=== PATIENT | female | born 1975 | race Caucasian/White ===

== ENCOUNTER 2018-05-15 13:47 | Emergency (ER) | payer MEDICAID ==
[~2018-05-15] VITALS: Ht 177.8 cm; Wt 77.0 kg
[2018-05-15 15:43] LABS: BASOPHILS # (AUTO) 0.23 x10^3/uL (0-0.1); BASOPHILS % (AUTO) 2 % (0-1); EOSINOPHILS # (AUTO) 0.22 x10^3/uL (0-0.4); EOSINOPHILS % (AUTO) 2 % (1-7); LYMPHOCYTES # (AUTO) 4.36 x10^3/uL (1-3.4); LYMPHOCYTES % (AUTO) 29 % (22-44); MD SCAN; MEAN CORPUSCULAR HEMOGLOBIN 30.1 pg (27.0-34.8); MEAN CORPUSCULAR HGB CONC 32.6 g/dL (32.4-35.8); MEAN CORPUSCULAR VOLUME 92.5 fL (80-100); MEAN PLATELET VOLUME 8.4 fL (7.4-10.4); MONOCYTES # (AUTO) 0.96 x10^3/uL (0.2-0.8); MONOCYTES % (AUTO) 7 % (2-9); NEUTROPHILS # (AUTO) 9.11 x10^3/uL (1.8-6.8); NEUTROPHILS % (AUTO) 61 % (42-75); PLATELET COUNT 400 x10^3/uL (130-400); RED BLOOD COUNT 4.21 x10^6/uL (3.82-5.3); RED CELL DISTRIBUTION WIDTH 17.9 % (9.6-15.2)
[2018-05-15 15:46] LABS: ALANINE AMINOTRANSFERASE 17 U/L (12-78); ALBUMIN 3.6 g/dL (3.4-5.0); ANION GAP 11 mmol/L (5-15); CALCIUM 8.5 mg/dL (8.5-10.1); CHLORIDE 112 mmol/L (98-107); CREATININE 1.34 mg/dL (0.55-1.02)
[2018-05-15 15:49] LABS: ALKALINE PHOSPHATASE 79 U/L (45-117); BILIRUBIN,TOTAL 0.2 mg/dL (0.2-1.0)
[2018-05-15] MEDS ORDERED: ONDANSETRON 2MG/ML, 2ML IVPush ONE (16:30)
[2018-05-15] MEDS ORDERED: SODIUM CHLORIDE FLUSH 10ML SYR IVF ONE (16:30)
[2018-05-15 16:58] LABS: MICROSCOPIC NOT IND
[2018-05-15 17:02] LABS: CULTURE INDICATED? NO
[2018-05-15] MEDS ORDERED: HYDROmorphone 2 MG/ML, 1ML ONE ×2 (17:08→18:49)
[2018-05-15] MEDS ORDERED: ONDANSETRON 2MG/ML, 2ML ONE (17:08)
[2018-05-15] MEDS: HYDROmorphone 2 MG/ML, 1ML IVPush PRN ×2 (17:15→18:50)
[2018-05-15] MEDS ORDERED: OMNIPAQUE 350 MG/ML, 100ML BOTTLE ONE (17:38)
[2018-05-15 17:44] LABS: CLOSTRIDIUM DIFFICILE ANTIGEN NEGATIVE; CLOSTRIDIUM DIFFICILE TOXIN NEGATIVE (Negative)
[2018-05-15 19:11] VITALS: BP 138/70
[2018-05-15] MEDS ORDERED: SUMA25TA3 PO (21:17)
[2018-05-15] MEDS ORDERED: METO25TA35 PO (21:17)
[2018-05-15] MEDS ORDERED: CHOL400C11 PO (21:17)
[2018-05-15] MEDS ORDERED: GABA-827 PO (21:18)
[2018-05-15] MEDS ORDERED: AMLO10TA6 PO (21:18)
[2018-05-15] MEDS ORDERED: LORA-446 PO (21:18)
== END 2018-05-15 19:14 | disposition home or self-care (01) ==
LOC: ED 18:33
DX: K52.9 Noninfective gastroenteritis and colitis, unspecified (principal); F17.200 Nicotine dependence, unspecified, uncomplicated
CPT/HCPCS: 36415; 74022; 74177; 80053; 81003; 83690; 85025; 87324; 89055; 96374; 96375; 96376; 99284; J1170; J2405; Q9967

== ENCOUNTER 2018-05-15 20:50 | Emergency (ER) | payer MEDICAID ==
[~2018-05-15] VITALS: Ht 170.2 cm; Wt 70.0 kg
[2018-05-15] MEDS ORDERED: SUMA25TA3 PO (21:17)
[2018-05-15] MEDS ORDERED: METO25TA35 PO (21:17)
[2018-05-15] MEDS ORDERED: CHOL400C11 PO (21:17)
[2018-05-15] MEDS ORDERED: AMLO10TA6 PO (21:18)
[2018-05-15] MEDS ORDERED: LORA-446 PO (21:18)
[2018-05-15] MEDS ORDERED: GABA-827 PO (21:18)
[2018-05-15] MEDS ORDERED: PROMETHAZINE 25 MG/ML, 1ML IM ONE (21:30)
[2018-05-15] MEDS ORDERED: HYDROmorphone 2 MG/ML, 1ML ONE (21:30)
[2018-05-15] MEDS ORDERED: HYDROmorphone 1 MG/ML, 1ML IM ONE (21:30)
[2018-05-15] MEDS ORDERED: PROMETHAZINE 25 MG/ML, 1ML ONE (21:30)
[2018-05-15 22:02] LABS: BASOPHILS % (AUTO) 1 % (0-1); EOSINOPHILS # (AUTO) 0.24 x10^3/uL (0-0.4); EOSINOPHILS % (AUTO) 3 % (1-7); LYMPHOCYTES # (AUTO) 2.56 x10^3/uL (1-3.4); LYMPHOCYTES % (AUTO) 30 % (22-44); MD NO; MEAN CORPUSCULAR HEMOGLOBIN 30.9 pg (27.0-34.8); MEAN CORPUSCULAR HGB CONC 33.4 g/dL (32.4-35.8); MEAN CORPUSCULAR VOLUME 92.7 fL (80-100); MEAN PLATELET VOLUME 7.4 fL (7.4-10.4); MONOCYTES % (AUTO) 10 % (2-9); NEUTROPHILS # (AUTO) 4.78 x10^3/uL (1.8-6.8); NEUTROPHILS % (AUTO) 56 % (42-75); PLATELET COUNT 483 x10^3/uL (130-400); RED BLOOD COUNT 3.58 x10^6/uL (3.82-5.3)
[2018-05-15 22:10] LABS: ALANINE AMINOTRANSFERASE 15 U/L (12-78); ANION GAP 9 mmol/L (5-15); CHLORIDE 115 mmol/L (98-107); CREATININE 1.11 mg/dL (0.55-1.02)
[2018-05-15 22:12] LABS: ALKALINE PHOSPHATASE 67 U/L (45-117); BILIRUBIN,TOTAL 0.1 mg/dL (0.2-1.0); TOTAL PROTEIN 6.9 g/dL (6.4-8.2)
[2018-05-15] MEDS ORDERED: DICYCLOMINE 10 MG CAPSULE PO ONE (22:30)
[2018-05-15] MEDS ORDERED: DICYCLOMINE 20 MG TABLET ONE (22:31)
[2018-05-15 22:43] VITALS: BP 124/84
== END 2018-05-15 22:45 | disposition home or self-care (01) ==
LOC: ED 22:02
DX: A09 Infectious gastroenteritis and colitis, unspecified (principal)
CPT/HCPCS: 36415; 80053; 83690; 85025; 96372; 99283; J1170; J2550

== ENCOUNTER 2018-05-25 09:39 | Emergency (ER) | payer MEDICAID ==
[~2018-05-25] VITALS: Ht 177.8 cm; Wt 78.7 kg
[~2018-05-25 09:39] MED LIST: AMLO10TA6 PO; CHOL400C11 PO; GABA-827 PO; LORA-446 PO; METO25TA35 PO; SUMA25TA3 PO
[2018-05-25 09:53] VITALS: BP 144/90
[2018-05-25 11:40] LABS: BASOPHILS # (AUTO) 0.06 x10^3/uL (0-0.1); BASOPHILS % (AUTO) 1 % (0-1); EOSINOPHILS # (AUTO) 0.26 x10^3/uL (0-0.4); EOSINOPHILS % (AUTO) 2 % (1-7); LYMPHOCYTES # (AUTO) 3.68 x10^3/uL (1-3.4); LYMPHOCYTES % (AUTO) 32 % (22-44); MD NO; MEAN CORPUSCULAR HEMOGLOBIN 30.1 pg (27.0-34.8); MEAN CORPUSCULAR HGB CONC 32.6 g/dL (32.4-35.8); MEAN CORPUSCULAR VOLUME 92.2 fL (80-100); MEAN PLATELET VOLUME 7.5 fL (7.4-10.4); MONOCYTES # (AUTO) 0.76 x10^3/uL (0.2-0.8); MONOCYTES % (AUTO) 7 % (2-9); NEUTROPHILS # (AUTO) 6.91 x10^3/uL (1.8-6.8); NEUTROPHILS % (AUTO) 59 % (42-75); PLATELET COUNT 503 x10^3/uL (130-400); RED BLOOD COUNT 3.65 x10^6/uL (3.82-5.3)
[2018-05-25 11:51] LABS: ALANINE AMINOTRANSFERASE 18 U/L (12-78); ALBUMIN 3.1 g/dL (3.4-5.0); ANION GAP 7 mmol/L (5-15); CALCIUM 8.5 mg/dL (8.5-10.1); CHLORIDE 115 mmol/L (98-107); CREATININE 1.05 mg/dL (0.55-1.02)
[2018-05-25 11:53] LABS: ALKALINE PHOSPHATASE 80 U/L (45-117); BILIRUBIN,TOTAL 0.2 mg/dL (0.2-1.0); TOTAL PROTEIN 7.3 g/dL (6.4-8.2)
[2018-05-25] MEDS ORDERED: SODIUM CHLORIDE FLUSH 10ML SYR IVF ONE (12:30)
== END 2018-05-25 14:16 | disposition left against medical advice (07) ==
LOC: ED 12:49
DX: R10.84 Generalized abdominal pain (principal); R19.7 Diarrhea, unspecified; R11.2 Nausea with vomiting, unspecified; F17.200 Nicotine dependence, unspecified, uncomplicated; I10 Essential (primary) hypertension
CPT/HCPCS: 36415; 74021; 80053; 83690; 85025; 93005; 99284

== ENCOUNTER 2018-05-25 22:07 | Emergency (ER) | payer MEDICAID ==
[~2018-05-25] VITALS: Ht 175.3 cm; Wt 76.4 kg
[2018-05-25] MEDS ORDERED: KETOROLAC 30 MG/1 ML IM ONE (23:00)
[2018-05-25] MEDS ORDERED: ONDANSETRON ODT 4 MG PO ONE (23:00)
[2018-05-25] MEDS ORDERED: KETOROLAC 30 MG/1 ML ONE (23:05)
[2018-05-25] MEDS ORDERED: ONDANSETRON ODT 4 MG ONE (23:05)
[2018-05-26] MEDS ORDERED: ZIPRASIDONE 20 MG INJ IM ONE ×2 (00:30→00:47)
[2018-05-26 02:53] VITALS: BP 137/91
== END 2018-05-26 02:56 | disposition home or self-care (01) ==
LOC: ED 22:38
DX: G89.29 Other chronic pain (principal); R10.84 Generalized abdominal pain; R19.7 Diarrhea, unspecified; I10 Essential (primary) hypertension; Z87.19 Personal history of other diseases of the digestive system
CPT/HCPCS: 96372; 99283; J1885; J3486; Q0162

== ENCOUNTER 2018-10-11 09:07 | Inpatient (IN) | payer MEDICAID ==
[~2018-10-11] VITALS: Ht 177.8 cm; Wt 88.3 kg
[~2018-10-11 09:07] MED LIST changes: -AMLO10TA6 PO; +AMLO10TA8 PO
[2018-10-11] MEDS ORDERED: SODIUM CHLORIDE 0.9% 1,000ML IVBOLUS ONE (10:00)
[2018-10-11 10:18] LABS: BASOPHILS # (AUTO) 0.04 x10^3/uL (0-0.1); BASOPHILS % (AUTO) 1 % (0-1); EOSINOPHILS % (AUTO) 0 % (1-7); LYMPHOCYTES # (AUTO) 0.61 x10^3/uL (1-3.4); LYMPHOCYTES % (AUTO) 9 % (22-44); MD NO; MEAN CORPUSCULAR HEMOGLOBIN 30.9 pg (27.0-34.8); MEAN CORPUSCULAR HGB CONC 32.5 g/dL (32.4-35.8); MEAN CORPUSCULAR VOLUME 94.9 fL (80-100); MEAN PLATELET VOLUME 7.6 fL (7.4-10.4); MONOCYTES # (AUTO) 0.04 x10^3/uL (0.2-0.8); MONOCYTES % (AUTO) 1 % (2-9); NEUTROPHILS # (AUTO) 6.04 x10^3/uL (1.8-6.8); NEUTROPHILS % (AUTO) 90 % (42-75); PLATELET COUNT 313 x10^3/uL (130-400); RED BLOOD COUNT 2.74 x10^6/uL (3.82-5.3); RED CELL DISTRIBUTION WIDTH 20.3 % (9.6-15.2)
[2018-10-11] MEDS ORDERED: AZITHROMYCIN 500 MG in SODIUM CHLORIDE 0.9% 250 ML IV ONE (10:30)
[2018-10-11] MEDS ORDERED: CEFTRIAXONE PMX 1GM/50ML 50 ML IVPB ONE (10:30)
[2018-10-11 10:31] LABS: ALANINE AMINOTRANSFERASE 421 U/L (12-78); ALBUMIN 2.2 g/dL (3.4-5.0); ANION GAP 11 mmol/L (5-15); CALCIUM 7.9 mg/dL (8.5-10.1); CHLORIDE 104 mmol/L (98-107); CREATININE 2.18 mg/dL (0.55-1.02)
[2018-10-11 10:35] LABS: ALKALINE PHOSPHATASE 113 U/L (45-117); BILIRUBIN,TOTAL 0.4 mg/dL (0.2-1.0); TOTAL PROTEIN 5.8 g/dL (6.4-8.2)
[2018-10-11] MEDS ORDERED: CEFTRIAXONE PMX 1GM/50ML 50 ML ONE (10:38)
--- NOTE | 2018-10-11 10:39 | NUR ---
HIGH TROP OF 0.292 CALLED BY LAB PROVIDER MADE AWARE.
[2018-10-11 10:40] LABS: TROPONIN I 0.292 ng/mL (0.000-0.045)
--- NOTE | 2018-10-11 10:44 | NUR ---
pt placed on air sampling and monitoring. cont o2 and nibp in place
[2018-10-11] MEDS ORDERED: FUROSEMIDE 20 MG/2 ML ONE (10:49)
[2018-10-11] MEDS ORDERED: FUROSEMIDE 20 MG/2 ML IV ONE (11:00)
[2018-10-11] MEDS ORDERED: POLYETHYLENE GLYCOL 17 GM PACKET PO PRN (12:00)
[2018-10-11] MEDS ORDERED: ONDANSETRON 2MG/ML, 2ML IVPush PRN (12:00)
[2018-10-11] MEDS ORDERED: LABETALOL 5MG/ML, 20ML IVPush PRN (12:00)
[2018-10-11] MEDS ORDERED: ONDANSETRON ODT 4 MG PO PRN (12:00)
[2018-10-11] MEDS ORDERED: METH5TAB2 PO (12:07)
[2018-10-11 12:21] LABS: FREE T4 (FREE THYROXINE) 0.77 ng/dL (0.76-1.46); THYROID STIMULATING HORMONE 1.16 mIU/L (0.358-3.740)
--- NOTE | 2018-10-11 12:46 | NUR ---
LATE NOTE 1145 PT REQUESTING SOMETHING FOR HER ANXIETY AT THIS TIME MD MADE AWARE. PT UP TO COMMODE AMBULATES WITH A STEADY GAIT.
[2018-10-11] MEDS ORDERED: HEPARIN 5,000 UNITS/ML, 1ML SQ SCH (13:00)
[2018-10-11 13:46] VITALS: BP 92/55
[2018-10-11 14:52] LABS: AMPHETAMINE SCREEN, URINE Negative (Negative); BARBITURATE SCREEN, URINE Negative (Negative); BENZODIAZEPINE SCREEN, URINE Negative (Negative); CANNABINOID SCREEN, URINE Negative (Negative); COCAINE SCREEN, URINE Negative (Negative); METHADONE SCREEN, URINE Positive (Negative); OPIATE SCREEN, URINE Negative (Negative)
[2018-10-11] MEDS ORDERED: ALBUTEROL/IPRATROPIUM 2.5MG/0.5MG, 3 ML ONE (16:28)
[2018-10-11 17:24] LABS: TROPONIN I 0.294 ng/mL (0.000-0.045)
[2018-10-11] MEDS: FUROSEMIDE 20 MG/2 ML IV SCH (17:43)
[2018-10-11 18:22] LABS: CULTURE INDICATED? YES; MICROSCOPIC INDICATED
[2018-10-11 18:49] VITALS: BP 99/65
[2018-10-11 19:50] LABS: SALICYLATE LEVEL 5.1 mg/dL (2.8-20.0)
[2018-10-11] MEDS: CARVEDILOL 12.5 MG TABLET PO SCH (19:50)
[2018-10-11 19:52] LABS: ACETAMINOPHEN < 2 mcg/mL (10-30)
[2018-10-11] MEDS ORDERED: METHADONE 10 MG TABLET ONE (21:52)
[2018-10-11] MEDS: DOXYCYCLINE 100MG TABLET PO SCH (21:55)
[2018-10-11] MEDS: METHADONE 5 MG TABLET PO SCH (21:55)
[2018-10-11] MEDS ORDERED: HEPARIN 5,000 UNITS/ML, 1ML IV ONE (23:00)
[2018-10-12 00:07] LABS: TROPONIN I 0.327 ng/mL (0.000-0.045)
[2018-10-12 01:09] VITALS: BP 122/79
[2018-10-12] MEDS: HEPARIN 25,000 UNITS/500ML PMX 500 ML IV PRN (01:25)
[2018-10-12] MEDS ORDERED: ESCI20TA10 PO (04:43)
[2018-10-12] MEDS ORDERED: ONDA4TAB7 PO (04:43)
[2018-10-12] MEDS ORDERED: HALO5AMP3 PO (04:43)
[2018-10-12] MEDS ORDERED: BUTA1CAP30 PO (04:43)
[2018-10-12] MEDS ORDERED: CYCL-259 PO (04:43)
[2018-10-12] MEDS ORDERED: QUET150T4 PO (04:43)
[2018-10-12] MEDS ORDERED: FLUT1DIS3 INH (04:43)
[2018-10-12] MEDS ORDERED: HALOPERIDOL 5 MG TABLET ONE (06:27)
[2018-10-12] MEDS: CARVEDILOL 12.5 MG TABLET PO SCH ×2 (06:30→16:52)
[2018-10-12] MEDS ORDERED: ALBUTEROL/IPRATROPIUM 2.5MG/0.5MG, 3 ML NPPB PRN (06:30)
[2018-10-12] MEDS: HALOPERIDOL 5 MG TABLET PO SCH ×2 (06:32→21:39)
[2018-10-12] MEDS: LORazepam 1MG TABLET PO SCH (07:38)
[2018-10-12 07:50] LABS: MEAN CORPUSCULAR HEMOGLOBIN 30.4 pg (27.0-34.8); MEAN CORPUSCULAR HGB CONC 32.3 g/dL (32.4-35.8); MEAN CORPUSCULAR VOLUME 94.4 fL (80-100); MEAN PLATELET VOLUME 7.2 fL (7.4-10.4); PLATELET COUNT 311 x10^3/uL (130-400); RED BLOOD COUNT 2.83 x10^6/uL (3.82-5.3); RED CELL DISTRIBUTION WIDTH 20.5 % (9.6-15.2)
[2018-10-12 07:53] LABS: ALBUMIN 2.3 g/dL (3.4-5.0); ANION GAP 5 mmol/L (5-15); CALCIUM 7.7 mg/dL (8.5-10.1); CHLORIDE 108 mmol/L (98-107)
[2018-10-12 07:56] LABS: ALANINE AMINOTRANSFERASE 529 U/L (12-78); ALKALINE PHOSPHATASE 126 U/L (45-117); BILIRUBIN,TOTAL 0.3 mg/dL (0.2-1.0); CHOL/HDL RATIO 3.8; CHOLESTEROL, TOTAL 90 mg/dL (140-239); CREATININE 1.75 mg/dL (0.55-1.02); HDL CHOL % 27 % (28-40); HDL CHOLESTEROL (DIRECT) 24 mg/dL (40-60); LDL CHOLESTEROL,CALCULATED 47 mg/dL (54-169); TOTAL PROTEIN 6.1 g/dL (6.4-8.2); TRIGLYCERIDES 97 mg/dL (50-200); TROPONIN I 0.213 ng/mL (0.000-0.045); VLDL CHOLESTEROL 19 mg/dL (0-25)
[2018-10-12 08:03] VITALS: BP 126/84
[2018-10-12 08:07] LABS: MD YES
[2018-10-12 08:26] LABS: BAND#(MANUAL) 0.34 x10^3/uL; BANDS%(MANUAL) 10 % (0-7); EOS% (MANUAL) 3 % (1-7); LYMPH#(MANUAL) 1.05 x10^3/uL (1-3.4); LYMPHS% (MANUAL) 31 % (22-44); MONOS#(MANUAL) 0.03 x10^3/uL (0.3-2.7); MONOS% (MANUAL) 1 % (2-9); SEG#(MANUAL) 1.87 x10^3/uL (1.8-6.8); SEGS% (MANUAL) 55 % (42-75)
[2018-10-12 08:27] LABS: ANISOCYTOSIS 1+
[2018-10-12 08:29] LABS: <PLATELET ESTIMATE> ADEQUATE
[2018-10-12 08:42] LABS: TOXIC GRAN 1+
[2018-10-12] MEDS: SENNA/DOCUSATE TABLET PO SCH (09:00)
[2018-10-12] MEDS: METHADONE 5 MG TABLET PO SCH ×2 (09:00→21:41)
[2018-10-12] MEDS ORDERED: METHADONE 10 MG TABLET ONE ×2 (09:20→21:33)
[2018-10-12] MEDS: GABAPENTIN 400 MG CAPSULE PO SCH ×3 (09:25→21:39)
[2018-10-12] MEDS: PANTOPROZOLE 40MG TABLET PO SCH (09:25)
[2018-10-12] MEDS: DOXYCYCLINE 100MG TABLET PO SCH ×2 (09:25→21:40)
[2018-10-12] MEDS: FUROSEMIDE 20 MG/2 ML IV SCH (09:25)
[2018-10-12] MEDS: CHOLECALCIFEROL 400 UNITS TABLET PO SCH (09:36)
[2018-10-12] MEDS: HEPARIN 5,000 UNITS/ML, 1ML IV PRN ×2 (09:36→17:22)
[2018-10-12] MEDS ORDERED: CEFTRIAXONE PMX 1GM/50ML 50 ML IV SCH (10:30)
[2018-10-12 12:28] LABS: % IRON SATURATION 5 % (20-55); IRON LEVEL 16 mcg/dL (50-170); TOTAL IRON BINDING CAPACITY 322 mcg/dL (250-450)
[2018-10-12 12:33] LABS: ABSOLUTE RETICS # 0.073 x10^6/uL (0.5-2.5); RED BLOOD COUNT 2.81 x10^6/uL (3.82-5.3); RETICULOCYTE COUNT % 2.6 % (0.5-1.5)
[2018-10-12 12:53] LABS: TRANSFERRIN 213 mg/dL (200-360)
[2018-10-12 14:14] VITALS: BP 122/79
[2018-10-12 19:35] VITALS: BP 105/72
[2018-10-12] MEDS: HYDROcodone/APAP 5/325 TABLET PO PRN (21:39)
[2018-10-12] MEDS: CYCLOBENZAPRINE 10 MG TABLET PO PRN (21:40)
[2018-10-13 01:43] VITALS: BP 102/68
[2018-10-13 02:26] LABS: MEAN CORPUSCULAR HEMOGLOBIN 30.3 pg (27.0-34.8); MEAN CORPUSCULAR HGB CONC 32.4 g/dL (32.4-35.8); MEAN CORPUSCULAR VOLUME 93.5 fL (80-100); MEAN PLATELET VOLUME 7.9 fL (7.4-10.4); PLATELET COUNT 220 x10^3/uL (130-400); RED BLOOD COUNT 2.65 x10^6/uL (3.82-5.3); RED CELL DISTRIBUTION WIDTH 19.9 % (9.6-15.2)
[2018-10-13 02:27] LABS: ALBUMIN 2.2 g/dL (3.4-5.0); ANION GAP 7 mmol/L (5-15); CALCIUM 7.9 mg/dL (8.5-10.1); CHLORIDE 110 mmol/L (98-107)
[2018-10-13 02:36] LABS: ALANINE AMINOTRANSFERASE 1309 U/L (12-78); ALKALINE PHOSPHATASE 140 U/L (45-117); BILIRUBIN,TOTAL 0.3 mg/dL (0.2-1.0); CREATININE 1.15 mg/dL (0.55-1.02); MD YES; TOTAL PROTEIN 5.7 g/dL (6.4-8.2)
[2018-10-13] MEDS: HEPARIN 5,000 UNITS/ML, 1ML IV PRN ×3 (02:51→18:30)
[2018-10-13 02:54] LABS: ANISOCYTOSIS 1+; BAND#(MANUAL) 0.11 x10^3/uL; BANDS%(MANUAL) 3 % (0-7); EOS#(MANUAL) 0.18 x10^3/uL (0.0-0.4); EOS% (MANUAL) 5 % (1-7); LYMPHS% (MANUAL) 40 % (22-44); REACTIVE LYMPHS # (MANUAL) 0.04 x10^3/uL (0-0); REACTIVE LYMPHS % (MANUAL) 1 % (0-0); SEG#(MANUAL) 1.79 x10^3/uL (1.8-6.8); SEGS% (MANUAL) 51 % (42-75)
[2018-10-13] MEDS: HEPARIN 25,000 UNITS/500ML PMX 500 ML IV PRN ×2 (02:55→18:32)
[2018-10-13 02:56] LABS: <PLATELET ESTIMATE> ADEQUATE; <PLT MORPHOLOGY> NORMAL PLT MORPH; TOXIC GRAN 1+
[2018-10-13] MEDS: CARVEDILOL 12.5 MG TABLET PO SCH (06:00)
[2018-10-13] MEDS: GABAPENTIN 400 MG CAPSULE PO SCH ×4 (06:13→21:19)
[2018-10-13] MEDS: PANTOPROZOLE 40MG TABLET PO SCH (06:13)
[2018-10-13] MEDS: CYCLOBENZAPRINE 10 MG TABLET PO PRN (06:13)
[2018-10-13 07:22] VITALS: BP 109/72
[2018-10-13] MEDS ORDERED: METHADONE 10 MG TABLET ONE (07:47)
[2018-10-13] MEDS: CHOLECALCIFEROL 400 UNITS TABLET PO SCH (08:04)
[2018-10-13] MEDS: METHADONE 5 MG TABLET PO SCH ×2 (08:04→21:20)
[2018-10-13] MEDS: LORazepam 1MG TABLET PO SCH (08:04)
[2018-10-13] MEDS: DOXYCYCLINE 100MG TABLET PO SCH ×2 (08:05→21:19)
[2018-10-13] MEDS: HALOPERIDOL 5 MG TABLET PO SCH ×2 (08:05→21:19)
[2018-10-13] MEDS: SENNA/DOCUSATE TABLET PO SCH (08:06)
[2018-10-13] MEDS: AMPICILLIN/SULBACTAM 3 GM in SODIUM CHLORIDE 0.9% 100 ML IV SCH ×4 (08:07→23:41)
[2018-10-13 11:25] LABS: CREATINE KINASE, TOTAL 69 U/L (26-192)
[2018-10-13 12:00] LABS: INTERNATIONAL NORMALIZED RATIO 1.07 (0.93-1.1); PROTHROMBIN TIME 11.2 Seconds (9.6-11.5)
[2018-10-13 14:23] VITALS: BP 136/84
[2018-10-13] MEDS: CARVEDILOL 6.25 MG TABLET PO SCH (17:24)
[2018-10-13] MEDS: HYDROcodone/APAP 5/325 TABLET PO PRN (17:24)
[2018-10-13 18:02] LABS: INTERNATIONAL NORMALIZED RATIO 1.06 (0.93-1.1); PROTHROMBIN TIME 11.1 Seconds (9.6-11.5)
[2018-10-13 18:50] VITALS: BP 130/80
[2018-10-13] MEDS ORDERED: QUETIAPINE 100MG TABLET PO SCH (21:00)
[2018-10-13 21:21] VITALS: BP 125/82
[2018-10-14 01:16] VITALS: BP 118/78
[2018-10-14] MEDS: HEPARIN 5,000 UNITS/ML, 1ML IV PRN ×2 (02:02→09:59)
[2018-10-14 05:34] VITALS: BP 124/82
[2018-10-14] MEDS: AMPICILLIN/SULBACTAM 3 GM in SODIUM CHLORIDE 0.9% 100 ML IV SCH ×4 (05:36→23:09)
[2018-10-14] MEDS: GABAPENTIN 400 MG CAPSULE PO SCH ×4 (05:36→20:54)
[2018-10-14] MEDS: CARVEDILOL 6.25 MG TABLET PO SCH ×2 (05:36→18:01)
[2018-10-14 07:55] VITALS: BP 116/77
[2018-10-14] MEDS: PANTOPROZOLE 40MG TABLET PO SCH (08:15)
[2018-10-14] MEDS: METHADONE 5 MG TABLET PO SCH ×2 (08:15→23:09)
[2018-10-14] MEDS: CHOLECALCIFEROL 400 UNITS TABLET PO SCH (08:16)
[2018-10-14] MEDS: SENNA/DOCUSATE TABLET PO SCH (08:16)
[2018-10-14] MEDS: DOXYCYCLINE 100MG TABLET PO SCH ×2 (08:16→20:54)
[2018-10-14] MEDS: HYDROcodone/APAP 5/325 TABLET PO PRN (08:19)
[2018-10-14 08:35] LABS: MEAN CORPUSCULAR HEMOGLOBIN 29.9 pg (27.0-34.8); MEAN CORPUSCULAR HGB CONC 32.2 g/dL (32.4-35.8); RED BLOOD COUNT 2.47 x10^6/uL (3.82-5.3); RED CELL DISTRIBUTION WIDTH 20.4 % (9.6-15.2)
[2018-10-14 08:40] LABS: ANION GAP 6 mmol/L (5-15); CALCIUM 7.8 mg/dL (8.5-10.1); CHLORIDE 112 mmol/L (98-107)
[2018-10-14 08:44] LABS: ALANINE AMINOTRANSFERASE 820 U/L (12-78); ALKALINE PHOSPHATASE 114 U/L (45-117); BILIRUBIN,TOTAL 0.4 mg/dL (0.2-1.0); CREATININE 0.67 mg/dL (0.55-1.02); TOTAL PROTEIN 5.2 g/dL (6.4-8.2)
[2018-10-14 08:59] LABS: BASOPHILS # (AUTO) 0.01 x10^3/uL (0-0.1); BASOPHILS % (AUTO) 0 % (0-1); EOSINOPHILS % (AUTO) 5 % (1-7); LYMPHOCYTES # (AUTO) 2.37 x10^3/uL (1-3.4); LYMPHOCYTES % (AUTO) 38 % (22-44); MD SCAN; MEAN PLATELET VOLUME 8.4 fL (7.4-10.4); MONOCYTES # (AUTO) 0.31 x10^3/uL (0.2-0.8); MONOCYTES % (AUTO) 5 % (2-9); NEUTROPHILS # (AUTO) 3.18 x10^3/uL (1.8-6.8); NEUTROPHILS % (AUTO) 52 % (42-75); PLATELET COUNT 165 x10^3/uL (130-400)
[2018-10-14] MEDS: HALOPERIDOL 5 MG TABLET PO SCH (09:00)
[2018-10-14] MEDS: HEPARIN 25,000 UNITS/500ML PMX 500 ML IV PRN (09:42)
[2018-10-14] MEDS: LORazepam 1MG TABLET PO SCH (09:43)
[2018-10-14] MEDS: CYCLOBENZAPRINE 10 MG TABLET PO PRN ×2 (09:47→18:01)
[2018-10-14] MEDS ORDERED: OMNIPAQUE 350 MG/ML, 100ML BOTTLE ONE (12:43)
[2018-10-14 15:00] VITALS: BP 131/85
[2018-10-14] MEDS ORDERED: APIXABAN 5 MG TABLET PO SCH (16:04)
[2018-10-14] MEDS: APIXABAN 5 MG TABLET PO SCH (16:15)
[2018-10-14 18:52] VITALS: BP 153/94
[2018-10-14] MEDS ORDERED: FUROSEMIDE 20 MG/2 ML IV ONE (19:00)
[2018-10-14] MEDS ORDERED: QUETIAPINE 25MG TABLET PO SCH (21:00)
[2018-10-15 02:48] VITALS: BP 122/76
[2018-10-15] MEDS ORDERED: LORazepam 0.5MG TABLET PO ONE (05:00)
[2018-10-15] MEDS: CARVEDILOL 6.25 MG TABLET PO SCH (05:04)
[2018-10-15] MEDS: GABAPENTIN 400 MG CAPSULE PO SCH ×2 (05:04→10:15)
[2018-10-15] MEDS: AMPICILLIN/SULBACTAM 3 GM in SODIUM CHLORIDE 0.9% 100 ML IV SCH ×2 (05:05→12:07)
[2018-10-15 05:36] LABS: BASOPHILS # (AUTO) 0.02 x10^3/uL (0-0.1); BASOPHILS % (AUTO) 0 % (0-1); EOSINOPHILS # (AUTO) 0.37 x10^3/uL (0-0.4); EOSINOPHILS % (AUTO) 5 % (1-7); LYMPHOCYTES # (AUTO) 2.75 x10^3/uL (1-3.4); LYMPHOCYTES % (AUTO) 40 % (22-44); MD NO; MEAN CORPUSCULAR HEMOGLOBIN 30.6 pg (27.0-34.8); MEAN CORPUSCULAR HGB CONC 33.1 g/dL (32.4-35.8); MEAN CORPUSCULAR VOLUME 92.2 fL (80-100); MEAN PLATELET VOLUME 8.5 fL (7.4-10.4); MONOCYTES # (AUTO) 0.74 x10^3/uL (0.2-0.8); MONOCYTES % (AUTO) 11 % (2-9); NEUTROPHILS # (AUTO) 2.92 x10^3/uL (1.8-6.8); NEUTROPHILS % (AUTO) 43 % (42-75); PLATELET COUNT 191 x10^3/uL (130-400); RED BLOOD COUNT 2.55 x10^6/uL (3.82-5.3); RED CELL DISTRIBUTION WIDTH 20.6 % (9.6-15.2)
[2018-10-15 05:37] LABS: ALBUMIN 2.1 g/dL (3.4-5.0); ANION GAP 9 mmol/L (5-15); CALCIUM 8.1 mg/dL (8.5-10.1); CHLORIDE 105 mmol/L (98-107)
[2018-10-15 05:40] LABS: ALANINE AMINOTRANSFERASE 559 U/L (12-78); ALKALINE PHOSPHATASE 104 U/L (45-117); BILIRUBIN,TOTAL 0.4 mg/dL (0.2-1.0); CREATININE 0.83 mg/dL (0.55-1.02); TOTAL PROTEIN 5.3 g/dL (6.4-8.2)
[2018-10-15] MEDS ORDERED: MAGNESIUM SULFATE PMX 2GM/50ML 50 ML IV ONE (07:30)
[2018-10-15 08:00] VITALS: BP 132/86
[2018-10-15] MEDS ORDERED: LORazepam 1MG TABLET PO SCH (09:00)
[2018-10-15] MEDS ORDERED: METHADONE 5 MG TABLET PO SCH (09:00)
[2018-10-15 09:03] VITALS: BP 135/89
[2018-10-15] MEDS: PANTOPROZOLE 40MG TABLET PO SCH (09:12)
[2018-10-15] MEDS: DOXYCYCLINE 100MG TABLET PO SCH (09:12)
[2018-10-15] MEDS: CHOLECALCIFEROL 400 UNITS TABLET PO SCH (09:12)
[2018-10-15] MEDS: APIXABAN 5 MG TABLET PO SCH (09:13)
[2018-10-15] MEDS: METHADONE 5 MG TABLET PO SCH (09:13)
[2018-10-15] MEDS: SENNA/DOCUSATE TABLET PO SCH (09:15)
[2018-10-15] MEDS ORDERED: CARV6.2512 PO (09:32)
[2018-10-15] MEDS ORDERED: DOXY100T PO (09:32)
[2018-10-15] MEDS ORDERED: APIX5TAB PO (09:32)
[2018-10-15] MEDS ORDERED: AMOX1TAB64 PO (09:32)
[2018-10-15] MEDS ORDERED: METH5TAB2 PO (09:32)
[2018-10-15] MEDS ORDERED: PANT40TA5 PO (09:32)
[2018-10-15] MEDS: HYDROcodone/APAP 5/325 TABLET PO PRN (10:15)
== END 2018-10-15 14:48 | disposition home health service (06) | DRG 280 ==
LOC: ED 12:02 → 5SO 12:03
PROVIDERS: ADMIT Hospitalist; ATTEND Hospitalist
DX: I21.4 Non-ST elevation (NSTEMI) myocardial infarction (principal); I26.99 Other pulmonary embolism without acute cor pulmonale; J18.9 Pneumonia, unspecified organism; J96.01 Acute respiratory failure with hypoxia; N17.0 Acute kidney failure with tubular necrosis; I50.41 Acute combined systolic (congestive) and diastolic (congestive) heart failure; E87.2 Acidosis; J44.0 Chronic obstructive pulmonary disease with (acute) lower respiratory infection; J44.1 Chronic obstructive pulmonary disease with (acute) exacerbation; D63.8 Anemia in other chronic diseases classified elsewhere; E78.5 Hyperlipidemia, unspecified; F12.90 Cannabis use, unspecified, uncomplicated; F17.210 Nicotine dependence, cigarettes, uncomplicated; F41.0 Panic disorder [episodic paroxysmal anxiety]; G89.29 Other chronic pain; I11.0 Hypertensive heart disease with heart failure; K52.9 Noninfective gastroenteritis and colitis, unspecified; F41.9 Anxiety disorder, unspecified; G62.9 Polyneuropathy, unspecified; I95.9 Hypotension, unspecified; Z86.73 Personal history of transient ischemic attack (TIA), and cerebral infarction without residual deficits; Z76.5 Malingerer [conscious simulation]; Z79.01 Long term (current) use of anticoagulants; Z79.891 Long term (current) use of opiate analgesic; Z80.1 Family history of malignant neoplasm of trachea, bronchus and lung; Z81.1 Family history of alcohol abuse and dependence; Z90.49 Acquired absence of other specified parts of digestive tract; Z90.710 Acquired absence of both cervix and uterus; Z98.84 Bariatric surgery status
CPT/HCPCS: 36415; 74021; 84145; 87806; J7620; 70450; 71045; 71275; 74176; 76700; 78582; 80053; 80061; 80074; 80307; 80329; 81001; 82436; 82550; 82570; 82607; 82728; 83516; 83540; 83550; 83605; 83690; 83735; 83880; 84100; 84133; 84300; 84439; 84443; 84466; 84484; 84703; 85025; 85045; 85520; 85610; 85730; 86038; 86706; 87040; 87086; 93005; 93306; 94640; G0378; J0295; J0696; J1644; Q9967; A9540; A9558; C9898; G0475; G0480; J1940; J3475; J7030